=== PATIENT | male | born 1930 | race Caucasian/White ===

== ENCOUNTER 2016-12-03 15:01 | Emergency (ER) | payer OTHER ==
[~2016-12-03 15:01] MED LIST: ARIXTRA7.5 SC; C5 PO; CALCIUM PLUS; CALCIUM+VITD PO; CARDU2 PO; CARDURA1 MG PO; CO-Q-10 PO; COREG3 PO; COUMADIN3 MG PO; JALYN PO; KDUR20 PO; L20 PO; LORTAB10 PO; MAGOX4 PO; MUCINEX600 MG PO; NASONEX NAS; NEUR300 PO; NORCO1 TA2 PO; OPC PO; PCET PO; PRIN5 PO; PULMICORT90 MCG INH; SPIRIVA INH; SUPER B W/C PO; UROXATRAL PO; VENTOLIN HFA INH; VIT; VITAMIN OR; XARELTO20 MG PO; [UNRECOGNIZED DRUG - OTHER]; [UNRECOGNIZED DRUG - OTHER]; [UNRECOGNIZED DRUG - OTHER] OR; [UNRECOGNIZED DRUG - OTHER] PO; [UNRECOGNIZED DRUG - OTHER] PO; [UNRECOGNIZED DRUG - OTHER] PO; [UNRECOGNIZED DRUG - OTHER] PO; [UNRECOGNIZED DRUG - REMARK] NAS
[2016-12-03 15:41] LABS: BASOPHILS 0.2 %; BASOPHILS ABSOLUTE 0.02 10/3/uL (0.0-0.16); EOSINOPHILS 1.1 %; EOSINOPHILS ABSOLUTE 0.12 10/3/uL (0.0-0.53); IMMATURE GRANULOCYTES 0.5 %; IMMATURE GRANULOCYTES ABSOLUTE 0.05 10/3/uL (0.0-0.11); LYMPHOCYTES 18.2 %; MEAN CORPUS HGB CONC 31.8 g/dL (32.0-36.0); MEAN CORPUSCULAR HEMOGLOB 29.6 pg (26.0-34.0); MEAN PLATELET VOLUME 11.3 fL (9.2-13.0); MONOCYTES 14.9 %; MONOCYTES ABSOLUTE 1.64 10/3/uL (0.21-1.20); NEUTROPHILS 65.1 %; NEUTROPHILS ABSOLUTE 7.18 10/3/uL (2.02-8.40); PLATELET COUNT 212 10/3/uL (150-400); RBC DISTRIBUTION WIDTH 16.1 % (12.0-16.0); RED CELL COUNT 4.73 10/6/uL (4.7-6.1)
[2016-12-03 15:45] LABS: ER CBC TAT 0 Hrs 10 Mins; MANUAL DIFF NO %
[2016-12-03 15:52] LABS: INTERNATIONAL NORMAL RATI 2.2 UNITS (-); PARTIAL THROMBO TIME 33.8 SEC (22.5-37.2); PROTIME (NOT ORD) 24.4 SEC (12.0-14.5)
[2016-12-03 15:58] LABS: A/G RATIO 1.1 (0.7-1.9); ALBUMIN 2.9 G/DL (3.5-5.0); ALKALINE PHOSPHATASE 61 U/L (45-117); BUN (BLOOD UREA NITROGEN) 19 MG/DL (6-23); CALCIUM, SERUM 8.2 MG/DL (8.5-10.4); CHLORIDE, SERUM 102 MMOL/L (96-112); CO2 (CARBON DIOXIDE) 30 MMOL/L (24-34); CREATININE 0.92 MG/DL (0.70-1.30); GFR AFRICAN AMERICAN 87 ML/MIN (>=60); GFR NON AFRICAN AMERICAN 75 ML/MIN (>=60); GLOBULIN 2.7 G/DL (2.5-4.1); GLUCOSE, SERUM 178 MG/DL (60-99); POTASSIUM, SERUM 4.2 MMOL/L (3.5-5.3); SGOT(AST) 7 U/L (5-40); SGPT(ALT) 11 U/L (5-65); SODIUM, SERUM 141 MMOL/L (135-148); TOTAL BILIRUBIN 0.7 MG/DL (0-1.2); TOTAL PROTEIN 5.6 G/DL (6.0-8.5)
== END 2016-12-03 18:33 | disposition left against medical advice (07) ==
LOC: ER 15:01
PROVIDERS: Hospitalist
DX: Z53.21 Procedure and treatment not carried out due to patient leaving prior to being seen by health care provider (principal)
CPT/HCPCS: 80053; 85025; 85610; 85730; 93005

== ENCOUNTER 2016-12-04 10:08 | Emergency (ER) | payer OTHER | END 2016-12-04 12:18 | disposition home or self-care (01) | LOC: ER 10:08 | DX: S80.11XA Contusion of right lower leg, initial encounter (principal); I25.2 Old myocardial infarction; I50.9 Heart failure, unspecified; F32.9 Major depressive disorder, single episode, unspecified; Z86.73 Personal history of transient ischemic attack (TIA), and cerebral infarction without residual deficits; Z87.442 Personal history of urinary calculi; Z87.891 Personal history of nicotine dependence; Z79.899 Other long term (current) drug therapy; W19.XXXA Unspecified fall, initial encounter | CPT/HCPCS: 73590-RT; 99283; A9270-GY ==